=== PATIENT | male | born 1940 | race Caucasian/White ===

== ENCOUNTER 2021-05-09 23:32 | Emergency (ER) | payer OTHER ==
--- NOTE | 2021-05-10 00:56 | ER ---
Nurse's Notes [facility] Name: Beka Huang Age: 81 yrs Sex: Male : 1940 Arrival Date: 05/09/2021 Time: 23:43 Bed Waiting Private MD: Diagnosis: Presentation: 05/10 00:13 Chief complaint: Patient states: abdominal pain that has been there for a few days, em reports N/V, recently being treated for URI by taking Levaquin and prednisone. Coronavirus screen: Client denies travel out of the [place] in the last 14 days. Ebola Screen: Patient negative for fever greater than or equal to 101.5 degrees Fahrenheit, and additional compatible Ebola Virus Disease symptoms Patient denies exposure to infectious person. Patient denies travel to an Ebola-affected area in the 21 days before illness onset. No symptoms or risks identified at this time. Initial Sepsis Screen: Does the patient meet any 2 criteria? No. Patient's initial sepsis screen is negative. Does the patient have a suspected source of infection? No. Patient's initial sepsis screen is negative. Risk Assessment: Do you want to hurt yourself or someone else? Patient reports no desire to harm self or others. Onset of symptoms was May 10, 2021. 00:13 Method Of Arrival: Wheelchair em 00:13 Acuity: JOSH 3 em Historical: - Allergies: 00:17 PENICILLINS; em 00:17 Iodinated Contrast Media - IV Dye; em - PMHx: 00:17 Hypertension; em - PSHx: 00:17 heart bypass; em - Immunization history:: Client reports having NOT received the Covid vaccine. - Social history:: Smoking status: Patient denies any tobacco usage or history of. Vital Signs: 00:13 BP 170 / 83; Pulse 58; Resp 18 S; Temp 97.8; Pulse Ox 99% on R/A; Weight 8.16 kg; em Height 5 ft. 11 in. (180.34 cm); Pain 7/10; 00:13 Body Mass Index 2.51 (8.16 kg, 180.34 cm) em ED Course: 05/09 23:43 Patient arrived in ED. cf2 05/10 00:16 Triage completed. em 00:17 Arm band placed on. em Administered Medications: No medications were administered Outcome: 00:56 Patient left the ED. tt3 Signatures: Avila Garcia, RN RN Constance Boles [facility] Real Padilla tt3
[2021-05-10 01:24] VITALS: BP 170/83; TEMP 97.8; O2SAT 99
== END 2021-05-10 00:56 | disposition left against medical advice (07) ==
LOC: ER 23:32
DX: Z02.9 Encounter for administrative examinations, unspecified (principal)
CPT/HCPCS: 99281

== ENCOUNTER 2024-05-03 15:42 | Emergency (ER) | payer OTHER ==
[2024-05-03] MEDS ORDERED: HYDROCODONE/APAP 7.5/325 MG TAB ONE (16:10)
--- NOTE | 2024-05-03 16:12 | ER ---
Nurse's Notes [facility] Name: Beka Huang Age: 84 yrs Sex: Male : 1940 Arrival Date: 05/03/2024 Time: 15:42 Bed IW1 Private MD: Diagnosis: Dental root caries Presentation: 05/03 15:56 Chief complaint: Patient states: Right front tooth dental pain - scheduled for root ld1 canal 1 week away. Pt c/o severe pain to upper jaw and nasal cavity. Coronavirus screen:. Ebola Screen: No symptoms or risks identified at this time. Initial Sepsis Screen: Does the patient meet any 2 criteria? No. Patient's initial sepsis screen is negative. Does the patient have a suspected source of infection? No. Patient's initial sepsis screen is negative. Risk Assessment: Do you want to hurt yourself or someone else? Patient reports no desire to harm self or others. Onset of symptoms was May 03, 2024. 15:56 Method Of Arrival: Ambulatory ld1 15:56 Acuity: JOSH 4 ld1 Triage Assessment: 15:56 General: Appears in no apparent distress. uncomfortable, Behavior is calm, cooperative, ld1 appropriate for age. Pain: Complains of pain in frenulum and gums Pain does not radiate. Pain currently is 8 out of 10 on a pain scale. Quality of pain is described as throbbing, Pain began 2-3 days ago. Is continuous. EENT: Reports pain since 2-3 days to mouth. Neuro: Level of Consciousness is awake, alert, obeys commands, Oriented to person, place, time, situation. Cardiovascular: Capillary refill < 3 seconds Patient's skin is warm and dry. Respiratory: Airway is patent Respiratory effort is even, unlabored. GI: Abdomen is round non-distended. : No signs and/or symptoms were reported regarding the genitourinary system. Derm: No signs and/or symptoms reported regarding the dermatologic system. Musculoskeletal: No signs and/or symptoms reported regarding the musculoskeletal system. Historical: - Allergies: 15:56 Iodinated Contrast Media - IV Dye; ld1 15:56 PENICILLINS; ld1 - PMHx: 15:56 Hypertension; ld1 - Immunization history:: Adult Immunizations up to date. - Infectious Disease History:: Denies. - Social history:: Smoking status: Patient denies any tobacco usage or history of. Patient/guardian denies using alcohol. Screenin:59 [facility] ED Fall Risk Assessment (Adult) History of falling in the last 3 months, ld1 including since admission No falls in past 3 months (0 pts) Confusion or Disorientation No (0 pts) Intoxicated or Sedated No (0 pts) Impaired Gait No (0 pts) Mobility Assist Device Used No (0 pt) Altered Elimination No (0 pt) Score/Fall Risk Level 0 - 2 = Low Risk. Abuse screen: Denies threats or abuse. Denies injuries from another. Nutritional screening: No deficits noted. Tuberculosis screening: No symptoms or risk factors identified. Assessment: 15:59 Reassessment: See triage assessment. ld1 Vital Signs: 15:56 Temp 97.8(TE); Weight 87.09 kg; Height 6 ft. 0 in. ; Pain 8/10; ld1 15:59 Pulse 73; Resp 18; Pulse Ox 97% on R/A; ld1 16:17 BP 141 / 79; ld1 15:56 Body Mass Index 26.04 (87.09 kg, 182.88 cm) ld1 15:56 Pain Scale: Adult ld1 ED Course: 15:51 Patient arrived in ED. mg5 15:56 Arm band placed on right wrist. ld1 15:57 Triage completed. ld1 15:59 Krist[facility]C [facility]. sb4 15:59 Reynaldo Garcia MD is Attending Physician. sb4 15:59 Patient has correct armband on for positive identification. Call light in reach. Side ld1 rails up X2. Provided Education on: pain managment. Pulse ox on. NIBP on. Door closed. Noise minimized. Warm blanket given. 15:59 No provider procedures requiring assistance completed. ld1 16:11 Meño Mcarthur DDS is Referral Physician. sb4 16:17 Patient did not have IV access during this emergency room visit. ld1 Administered Medications: 16:17 Drug: Hydrocodone-Acetaminophen PO (7.5 mg-325 mg) 1 tabs PO once Route: PO; ld1 16:17 Drug: Clindamycin PO 300 mg PO once Route: PO; ld1 Medication: 15:59 VIS not applicable for this client. ld1 Outcome: 16:12 Discharge ordered by . sb4 16:17 Discharged to home ambulatory, ld1 16:17 Condition: stable 16:17 Discharge instructions given to patient, Instructed on discharge instructions, follow up and referral plans. medication usage, Demonstrated understanding of instructions, follow-up care, medications, Prescriptions given X 2, 16:17 Patient left the ED. ld1 Signatures: Zari Sauer RN RN ld1 Kristina Avila PA-C PASusanna sb4 Suzie Stiles mg5
--- NOTE | 2024-05-03 16:12 | EDPHYS ---
Physician Documentation [facility] Name: Beka Huang Age: 84 yrs Sex: Male : 1940 Arrival Date: 05/03/2024 Time: 15:42 Bed IW1 Private MD: ED Physician Reynaldo Garcia HPI: 05/03 16:57 This 84 yrs old Male presents to ER via Ambulatory with complaints of Toothache. sb4 16:57 The patient presents with broken tooth/teeth, redness. The problem is located in the sb4 philtrum and upper left central incisor. 17:08 Patient has had an infected tooth for quite some time now. He was scheduled for root sb4 canal 2 weeks ago but had to postpone it due to family emergency. He states that he cannot get rescheduled until Sunday. States that he his pain increased significantly yesterday. He has tried taking Tylenol and ibuprofen with some relief but it just comes right back. States the pain radiates up his maxilla. Historical: - Allergies: 15:56 Iodinated Contrast Media - IV Dye; ld1 15:56 PENICILLINS; ld1 - PMHx: 15:56 Hypertension; ld1 - Immunization history:: Adult Immunizations up to date. - Infectious Disease History:: Denies. - Social history:: Smoking status: Patient denies any tobacco usage or history of. Patient/guardian denies using alcohol. ROS: 17:08 Constitutional: Negative for fever, chills, and weight loss, sb4 17:08 ENT: Positive for dental pain, 17:08 All other systems are negative, Exam: 17:08 Head/Face: Normocephalic, atraumatic. Eyes: Extra-ocular motions intact. Periorbital sb4 areas with no swelling, redness, or edema. 17:08 Skin: Warm, dry with normal turgor. Normal color with no rashes, no lesions, and no evidence of cellulitis. 17:08 Constitutional: The patient appears alert, awake, uncomfortable, 17:08 ENT: Dental exam: gum swelling, that is moderate, missing teeth, specifically the upper left central incisor, Vital Signs: 15:56 Temp 97.8(TE); Weight 87.09 kg; Height 6 ft. 0 in. ; Pain 8/10; ld1 15:59 Pulse 73; Resp 18; Pulse Ox 97% on R/A; ld1 16:17 BP 141 / 79; ld1 15:56 Body Mass Index 26.04 (87.09 kg, 182.88 cm) ld1 15:56 Pain Scale: Adult ld1 MDM: 16:00 Patient medically screened. sb4 17:08 Data reviewed: vital signs, nurses notes, and as a result, I will discharge patient. sb4 Counseling: I had a detailed discussion with the patient and/or guardian regarding the historical points, exam findings, and any diagnostic results supporting the discharge/admit diagnosis, the need for outpatient follow up, a dentist, to return to the emergency department if symptoms worsen or persist or if there are any questions or concerns that arise at home. Administered Medications: 16:17 Drug: Hydrocodone-Acetaminophen PO (7.5 mg-325 mg) 1 tabs PO once Route: PO; ld1 16:17 Drug: Clindamycin PO 300 mg PO once Route: PO; ld1 Disposition: 18:03 Co-signature as Attending Physician, Reynaldo Garcia MD I reviewed the patient's care rt provided by the Advanced Practice Provider and agree with the diagnosis and treatment plan. Disposition Summary: 05/03/24 16:12 Discharge Ordered Notes: Location: Home sb4 Problem: new sb4 Symptoms: have improved sb4 Condition: Stable sb4 Diagnosis - Dental root caries sb4 Followup: sb4 - With: Meño Mcarthur DDS - When: As needed - Reason: Recheck today's complaints, Re-evaluation by your physician Discharge Instructions: - Discharge Summary Sheet sb4 - Dental Caries, Adult sb4 - Dental Pain, Fxtl-[id number] sb4 Forms: - Antibiotic Education sb4 - Prescription Opioid Use sb4 - Patient Portal Instructions sb4 - Leadership Thank You Letter sb4 Prescriptions: - acetaminophen-codeine 300-15 mg Oral tablet - take 1 tablet ORAL route every 6 hours as needed for pain; 12 tablet; Refills: sb4 0, Product Selection Permitted - Clindamycin HCl 300 mg Oral Capsule - take 1 capsule ORAL route every 6 hours for 10 days; 40 capsule; Refills: 0, sb4 Product Selection Permitted Signatures: Zari Sauer RN RN ld1 Kristina Avila PA-C PA-C sb4 [place], Reynaldo, MD MD rt
[2024-05-03 16:32] VITALS: BP 141/79; TEMP 97.8; O2SAT 97
== END 2024-05-03 16:17 | disposition home or self-care (01) ==
LOC: ER 15:42
DX: K02.7 Dental root caries (principal)
CPT/HCPCS: 99283